=== PATIENT | female | born 1945 | race Caucasian/White ===

== ENCOUNTER → 2019-07-22 | Day surgery (SDC) | payer MEDICARE, BC ==
[2019-07-21 16:48] LABS: BASOPHILS # (AUTO) 0.1 (0.0-0.1); BASOPHILS % 0.6 % (0.0-1.0); EOSINOPHILS # (AUTO) 0.2 (0.0-0.4); EOSINOPHILS % 2.4 % (0.0-6.0); HEMATOCRIT 40.3 % (34.2-44.1); HEMOGLOBIN 13.1 g/dL (12.0-16.0); LYMPHOCYTES # (AUTO) 1.8 (1.0-3.2); LYMPHOCYTES % 23.3 % (18.0-39.1); MEAN CORPUSCULAR HEMOGLOBIN 28.9 pg (28-32); MEAN CORPUSCULAR HGB CONC 32.5 g/dL (31-35); MEAN CORPUSCULAR VOLUME 88.8 fL (81-99); MONOCYTES # (AUTO) 0.8 (0.2-0.8); MONOCYTES % 10.6 % (4.4-11.3); NEUTROPHILS # (AUTO) 4.9 (2.1-6.9); NEUTROPHILS % 62.7 % (38.7-80.0); PLATELET COUNT 305 x10e3/uL (140-360); RED BLOOD COUNT 4.54 x10e6/uL (3.6-5.1); RED CELL DISTRIBUTION WIDTH 13.8 % (11.7-14.4)
[~2019-07-22] MED LIST: ATENOLOL50 MG PO; CALCIUM600 MG PO; CARAFATE1 GM PO; CENTRUM SILVER1 EAC3 PO; DEXILANT60 MG PO; DONNATAL/LIDOCAINE/MAALOX 30 ML SUSP PO ONE; LIPITOR20 MG PO; MIDAZOLAM HCL 2 MG/2 ML VIAL ONE; PROPOFOL IV EMULSION 10 MG/ML 50 ML VIAL ONE; SYNTHROID50 MCG PO; TOVIAZ4 MG PO; VIT D PO
--- OUTSIDE RECORDS SUMMARY | 2019-07-22 12:21 | XMS REPORT | Clinical Summary ---
Author Author [facility] Organization [facility] Address Unknown Phone Unavailable Care Team Providers Care Monitor Car Operator Name Role Phone Asked, No Pcp PCP Unavailable Allergies Comments Active Allergy Reactions Severity Noted Date No Known Drug Allergies 09/29/2015 Medications End Date Status Medication Sig Dispensed Refills Start Date Active fesoterodine (TOVIAZ) 4 Take by 0 mg tablet extended mouth. release 24 hr Active atorvastatin (LIPITOR) 40 Take 40 mg by 0 MG tablet mouth daily. Active cranberry fruit extract Take by 0 (ELLURA ORAL) mouth. Active levothyroxine (SYNTHROID, TK 1 T PO QAM 3 LEVOXYL) 50 mcg tablet 8 Active Problems Not on file Family History Medical History Relation Name Comments Cancer Other BREAST, LUNG Depression Other Heart disease Other Cancer Other BREAST, LUNG Depression Other Heart disease Other Relation Name Status Comments Other GRANDMOTHER Other GRANDFATHER Social History Date Tobacco Use Types Packs/Day Years Used Never Smoker Smokeless Tobacco: Never Used Drinks/Week oz/Week Comments Alcohol Use No Sex Assigned at Date Recorded Not on file Industry Job Start Date Occupation Not on file Not on file Not on file Travel End Travel History Travel Start No recent travel history available. Last Filed Vital Signs Not on file Plan of Treatment Health Maintenance Due Date Last Done Comments SHINGLES VACCINES (#1) 1993 65+ PNEUMOCOCCAL VACCINE 2008 (1 of 2 - PCV13) INFLUENZA VACCINE 07/02/2019 COLONOSCOPY SCREENING 09/01/2019 09/01/2009 Results Not on fileafter 07/21/2018 Insurance Type Payer Benefit Subscriber ID Effective Phone Address Plan / Dates Group Medicare MEDICARE MEDICARE xxxxxxxxxx 2008-P DIAZ, PART A AND resent [place] B PPO BCBS BCBS xxxxxxxxxxxx 2014-P CHOICE resent PPO/FEDER[employer] L EMPL PPO Advance Directives For more information, please contact: [phone] Patient Line Assigner Explanation Type Date Recorded Advance Directives, 12/11/2017 10:05 AM Living Will and Medical Power of Septic Cleaner
[2019-07-22 17:12] VITALS: BP 139/67
--- NOTE | 2019-07-22 19:57 | Operative Report ---
DATE OF PROCEDURE: 07/22/2019 SURGEON: Yayo Jc MD PROCEDURE: Esophagogastroduodenoscopy with biopsies. INDICATIONS FOR PROCEDURE: Upper abdominal pain, nausea, history of acid reflux. MEDICATIONS: The patient was done under MAC, please see anesthesiologist's note. PROCEDURE IN DETAIL: With the patient in left lateral decubitus position, a flexible fiberoptic Olympus gastroscope was introduced into the esophagus under direct visualization without any difficulty. There was some patchy erythema noted in distal esophagus. The scope was then advanced with ease into the stomach traversing a small hiatal hernia. Mucosa overlying the antrum and the body revealed some patchy intense erythema and low-grade edema. Biopsies were obtained, sent to stain for H pylori. Some prominent nodularity was noted in the upper body along the posterior wall and that was biopsied. Pylorus was intubated with ease and the scope was advanced to the second portion of the duodenum. Biopsies were obtained from the second portion and duodenal bulb to rule out sprue. The scope was then withdrawn back into the stomach and retroflexed. Mucosa overlying the fundus and cardia appeared to be within normal limits. The scope was then straightened out, it was subsequently withdrawn. The patient tolerated the procedure well. IMPRESSION: 1. Distal esophagitis, mild. 2. Small hiatal hernia. 3. Gastritis, biopsied. Biopsies sent to stain for Helicobacter pylori. 4. Prominent nodularity in upper body and posterior wall biopsied. 5. Rule out sprue. PLAN: Follow up histology. Increase Dexilant to 60 mg one p.o. a.c. b.i.d. Yayo Jc MD [facility] /[id number] cc: Jason Henry MD
== END | disposition home or self-care (01) ==
LOC: OR 12:15
PROVIDERS: ATTEND Internal Medicine Gastroenterology
DX: K20.9 Esophagitis, unspecified (principal); R10.10 Upper abdominal pain, unspecified; K21.9 Gastro-esophageal reflux disease without esophagitis; E03.9 Hypothyroidism, unspecified; K44.9 Diaphragmatic hernia without obstruction or gangrene; K29.70 Gastritis, unspecified, without bleeding; K29.80 Duodenitis without bleeding; K31.9 Disease of stomach and duodenum, unspecified
CPT/HCPCS: 36415; 43239; 85025; 87086; 88305; 88312; 93005; J2250; J2704; 43235

== ENCOUNTER → 2019-08-11 | Outpatient (CLI) | payer MEDICARE, BC ==
[~2019-08-11] MED LIST changes: -DONNATAL/LIDOCAINE/MAALOX 30 ML SUSP PO ONE; +IOPAMIDOL 370 MG/ML 200 ML INFUS..BTL INJ ONE; -MIDAZOLAM HCL 2 MG/2 ML VIAL ONE; -PROPOFOL IV EMULSION 10 MG/ML 50 ML VIAL ONE; +SODIUM CHLORIDE 0.9% 50ML 50 ML ONE
[2019-08-11 12:33] LABS: BLOOD UREA NITROGEN 16 mg/dL (7-26); BUN/CREATININE RATIO 21 (6-25); CREATININE, SERUM 0.75 mg/dL (0.57-1.11); EST GLOMERULAR FILTRATION RATE > 60 ML/MIN (60-)
--- NOTE | 2019-08-11 13:38 | Diagnostic Imaging Report ---
CT of the abdomen, with contrast, 08/11/2019. History: Upper abdominal pain. Comparison: None available. Technique: Multidetector CT scanning of the abdomen was performed from the level of the lung bases to the iliac crests after intravenous administration of contrast. Coronal and sagittal multiplanar reformations were obtained. RADIATION DOSE: Total DLP: 129 mGy*cm Dose modulation, iterative reconstruction, and/or weight based adjustment of the mA/kV was utilized to reduce the radiation dose to as low as reasonably achievable. Discussion: LUNG BASES: There is bibasilar atelectasis. ABDOMEN: A 6 mm stone is present within the right kidney. There is no evidence of hydronephrosis. Cholecystectomy clips are present. Mild CBD prominence is likely related to reservoir effect. The liver, spleen, pancreas, adrenal glands, and left kidney are normal. The hepatic vein, portal vein, and splenic vein are patent. The abdominal aorta is within normal limits for size. The stomach and visualized bowel are unremarkable. There is no evidence of adenopathy or free fluid. BONES AND SOFT TISSUES: Advanced degenerative changes are present throughout the lumbar spine without evidence of lytic or sclerotic lesion. IMPRESSION: 1. Nonobstructing 6 mm right renal calculus. 2. Status post cholecystectomy. Otherwise unremarkable exam. Signed by: Brent Shoemaker on 08/11/2019 1:35 PM
== END ==
LOC: CT 11:41
PROVIDERS: ATTEND Internal Medicine Gastroenterology
DX: R10.10 Upper abdominal pain, unspecified (principal)
CPT/HCPCS: 36415; 74160; 82565; 84520; Q9967

== ENCOUNTER → 2024-07-20 | Day surgery (SDC) | payer BC, MEDICARE ==
[2024-07-09 11:31] LABS: BASOPHILS # (AUTO) 0.1 (0.0-0.1); BASOPHILS % 0.7 % (0.0-1.0); EOSINOPHILS # (AUTO) 0.1 (0.0-0.4); EOSINOPHILS % 1.1 % (0.0-6.0); HEMATOCRIT 40.7 % (34.2-44.1); HEMOGLOBIN 12.9 g/dL (12.0-16.0); LYMPHOCYTES # (AUTO) 1.8 (1.0-3.2); LYMPHOCYTES % 19.6 % (18.0-39.1); MEAN CORPUSCULAR HGB CONC 31.7 g/dL (31-35); MEAN CORPUSCULAR VOLUME 91.5 fL (81-99); MONOCYTES # (AUTO) 0.9 (0.2-0.8); MONOCYTES % 9.4 % (4.4-11.3); NEUTROPHILS # (AUTO) 6.4 (2.1-6.9); NEUTROPHILS % 68.8 % (38.7-80.0); PLATELET COUNT 337 x10e3/uL (140-360); RED BLOOD COUNT 4.45 x10e6/uL (3.6-5.1); RED CELL DISTRIBUTION WIDTH 13.6 % (11.7-14.4); WHITE BLOOD COUNT 9.37 x10e3/uL (4.8-10.8)
[~2024-07-20] MED LIST changes: +D3-5000125 MCG; +GLYCOPYRROLATE INJ 0.2 MG/ML VIAL ONE; -IOPAMIDOL 370 MG/ML 200 ML INFUS..BTL INJ ONE; +LIDOCAINE HCL 2% LOCAL INJ 5 ML SDV VIAL INJ ONE; +METOCLOPRAMIDE HCL 10 MG/2ML VIAL ONE; +PROPOFOL IV EMULSION 10 MG/ML 20 ML VIAL ONE; -SODIUM CHLORIDE 0.9% 50ML 50 ML ONE
[2024-07-20 15:01] VITALS: TEMP 97.6
[2024-07-20 15:30] VITALS: BP 162/72; PULSE 81; RESP 16; O2SAT 98
== END | disposition home or self-care (01) ==
LOC: ENDO 13:28
PROVIDERS: ATTEND Internal Medicine Gastroenterology
DX: K20.90 Esophagitis, unspecified without bleeding (principal); K31.7 Polyp of stomach and duodenum; K29.70 Gastritis, unspecified, without bleeding; K31.89 Other diseases of stomach and duodenum; K44.9 Diaphragmatic hernia without obstruction or gangrene; K21.9 Gastro-esophageal reflux disease without esophagitis; Z71.3 Dietary counseling and surveillance; R05.3 Chronic cough; I10 Essential (primary) hypertension; E03.9 Hypothyroidism, unspecified; M81.0 Age-related osteoporosis without current pathological fracture; M06.9 Rheumatoid arthritis, unspecified; Z01.810 Encounter for preprocedural cardiovascular examination; Z01.812 Encounter for preprocedural laboratory examination; Z79.899 Other long term (current) drug therapy
CPT/HCPCS: 36415; 43239; 85025; 93005; J2001; J2470; J2765